=== PATIENT | male | born 1980 | race Caucasian/White ===

== ENCOUNTER 2016-08-10 20:35 | Emergency (ER) | payer OTHER ==
[2016-08-10 21:12] VITALS: BP 102/73; PULSE 78; RESP 18; TEMP 98.2; O2SAT 97
--- NOTE | 2016-08-10 21:33 | UCPHY ---
H & P Time Seen by Provider: 08/10/16 20:50 Patient Type: New HPI/ROS: 35-year-old male presents complaining sinusitis. He states he has been running high fever and had purulent discharge from his nose Review of systems As per HPI-sinus congestion General positive fever positive chills no weakness HEENT no eye pain no eye discharge. No eye redness, no sore throat Respiratory no cough, no shortness of breath Cardiac no chest pain, no peripheral edema GI no abdominal pain, no diarrhea, no constipation, no nausea, no vomiting no flank pain, no hematuria, no dysuria Musculoskeletal no myalgias, no joint pain Heme no easy bruising, no easy bleeding Endo no polyuria, no polydipsia Skin no rashes, no pruritus Neuro no syncope, no dizziness, no headaches Psych is no suicidal ideation, no homicidal ideation Past Medical/Surgical History: Prior history of sinusitis Social History: Alcohol socially, denies drug use Smoking Status: Never smoked Physical Exam: 35-year-old male Alert and oriented nontoxic appearance, no acute distress afebrile Atraumatic normocephalic Extraocular muscles intact, anicteric Nares mild yellowish discharge, nasal turbinates swelling bilaterally Maxillary facial tenderness bilaterally Oropharynx mild erythema no tonsillar swelling no exudate no uvular deviation, tolerating own secretions Neck supple no lymphadenopathy Lungs clear to auscultation bilaterally Heart regular rate and rhythm Abdomen normoactive bowel sounds soft nontender Extremities no cyanosis clubbing or edema Skin no rash Constitutional: Initial Vital Signs Temperature (C) 36.8 C 08/10/16 20:52 Heart Rate 78 08/10/16 20:52 Respiratory Rate 18 08/10/16 20:52 Blood Pressure 102/73 08/10/16 20:52 O2 Sat (%) 97 08/10/16 20:52 O2 Delivery Mode Room Air Allergies/Adverse Reactions: No Known Allergies Allergy (Unverified 08/10/16 20:52) Home Medications: Medication Instructions Recorded levOFLOXACIN [Levofloxacin] 500 mg PO DAILY #10 tablet 08/10/16 Medical Decision Making ED Course/Re-evaluation: Patient seen and evaluated for sinusitis Impression Sinusitis Plan Levofloxacin 500 q.day times 10 days Continue fluticasone Follow up with primary care physician - Data Points Medications Given: Discontinued Medications Levofloxacin (Levaquin) 500 mg PO EDNOW ONE PRN Reason: Protocol Stop: 08/10/16 21:31 Last Admin: 08/10/16 21:44 Dose: 500 mg Departure - Departure Disposition: Home, Routine, Self-Care Clinical Impression: Acute sinusitis Condition: Good Instructions: Sinusitis (ED) Referrals: Lynsey Anand MD [Primary Care Provider] - As per Instructions Prescriptions: levOFLOXACIN [Levofloxacin] 500 mg PO DAILY #10 tablet - PQRS PQRS Measurement: na
== END 2016-08-10 21:45 | disposition home or self-care (01) ==
LOC: CED 20:35
DX: J01.90 Acute sinusitis, unspecified (principal)
CPT/HCPCS: 99203-PO; G0463-PO